=== PATIENT | male | born 1945 | race Caucasian/White ===

== ENCOUNTER 2016-09-17 08:25 | Day surgery (SDC) | payer MEDICARE, BC ==
[~2016-09-17 08:25] MED LIST: ASPI325T PO; ATEN-104 PO; ATOR10 PO; B COTAB3 PO; LOTR5CAP2 PO; OMEGCAP2 OR
[2016-09-17 08:41] VITALS: BP 149/93; PULSE 20; RESP 20; TEMP 98; O2SAT 97
--- NOTE | 2016-09-17 16:11 | RADRPT ---
EXAM DATE/TIME: 09/17/2016 08:45 [facility] COMPARISON : No previous studies available for comparison. INDICATIONS : Solid left renal mass. OBJECTIVE: Temperature: 98.0 Heart Rate: 74 Blood Pressure: 149/93 Respiratory: 16 Oximetry: 97 PNEUMONIA VACCINE: NO HISTORY OF PRESENT ILLNESS: Patient has a known solid left renal mass which has been under surveillance for several years and fou nd to be slowly increasing in size. Most recent MRI abdomen study from August 26, 2016 from [facility] was compared to MRI abdomen from [facility] dated February 02, 2013. This study revea ls increase in size of the mass from a transverse diameter of less than 2 cm to approximately 2.5 cm on the current study. PAST MEDICAL HISTORY : 1. Hypertension. 2. Hypercholesterolemia. PAST SURGICAL HISTORY : 1. Coronary artery stent. colon resection SOCIAL HISTORY : Social alcohol use. MEDICATIONS: NTG Aspirin ATENOL 150 mg q.d. LIPITOR 10 mg q.h.s. LOTTREL 5 mg q.d. ASSESSMENT: Solid left renal mass, slowly increasing in size. The mass is situated in a good location superficial ly in the posterior aspect of the left kidney and is readily accessible for biopsy and cryoablation t reatment was recommended. PLAN: The patient will be scheduled for left renal cryoablation and biopsy. Nikolas Yeung MD Board Certified Radiologist. This report was verified electronically.
== END 2016-09-17 10:05 | disposition home or self-care (01) ==
LOC: HROP 08:25 → HRIP 08:25 → HROP 10:05
PROVIDERS: ATTEND Radiology Body Imaging
DX: N28.89 Other specified disorders of kidney and ureter (principal); I10 Essential (primary) hypertension; E78.00 Pure hypercholesterolemia, unspecified
CPT/HCPCS: 99212; G0463

== ENCOUNTER 2016-11-07 06:18 | Day surgery (SDC) | payer MEDICARE, BC ==
[2016-11-07] VITALS (11 sets, daily range): BP systolic 112–140; BP diastolic 66–86; PULSE 65–82; RESP 18–20; TEMP 97.4–98.2; O2SAT 92–96
[~2016-11-07] VITALS: Ht 182.9 cm; Wt 89.1 kg
[2016-11-07] MEDS ORDERED: B-COCAP6 PO (07:04)
[2016-11-07] MEDS ORDERED: ATEN100T PO (07:04)
[2016-11-07] MEDS ORDERED: ASPI325T PO (07:04)
[2016-11-07] MEDS ORDERED: ATOR10TA15 PO (07:04)
[2016-11-07] MEDS ORDERED: LOTR5CAP2 PO (07:04)
[2016-11-07] MEDS ORDERED: OMEG100010 (07:04)
[2016-11-07] MEDS ORDERED: LACTATED RINGER'S 1000 ML IV SCH (07:30)
[2016-11-07] MEDS ORDERED: ceFAZolin 2 GM PREMIX 50 ML IV SCH (07:30)
[2016-11-07] MEDS ORDERED: INSULIN HUMAN REGULAR 1,000 UNITS/10 ML VIAL SQ PRN (07:30)
[2016-11-07] MEDS ORDERED: SODIUM CHLORID 0.9% 500 ML IV SCH (07:30)
[2016-11-07] MEDS ORDERED: METOPROLOL TARTRATE 25 MG TAB PO PRN (07:30)
[2016-11-07] MEDS ORDERED: SODIUM CHLOR 0.9% 1000 ML INJ 1,000 ML IV SCH (07:30)
[2016-11-07 07:49] LABS: BICARBONATE 22.6 MEQ/L (21.0-32.0); POTASSIUM 3.9 MEQ/L (3.5-5.1)
[2016-11-07] MEDS ORDERED: LIDOCAINE 1%/EPINEPHrine 1:100,000 SOLN 20 ML VIAL ONE (08:54)
[2016-11-07] MEDS ORDERED: ONDANSETRON HCL 4 MG/2 ML VIAL IV PUSH ONE (09:46)
[2016-11-07] MEDS ORDERED: ePHEDrine/NS 25 MG/5 ML SYR IV ONE (09:46)
[2016-11-07] MEDS ORDERED: NEOSTIGMINE 3 MG/3 ML SYR IV ONE (09:46)
[2016-11-07] MEDS ORDERED: PROPOFOL 200 MG/20 ML AMP IV ONE (09:46)
[2016-11-07] MEDS ORDERED: HYDROmorphone HCL 2 MG TAB PO PRN (11:30)
--- NOTE | 2016-11-07 11:34 | PD.RAD ---
Post CT Procedure Prog Note Pre Procedure Diagnosis: (1) Left renal mass Post Procedure Diagnosis: (1) Left renal mass Procedure Date: Nov 07, 2016 Supervising Radiologist: Nikolas Yeung Proceduralist/Assist: RT Lalo(R)(CT) Anesthesia: General Plan of Activity Patient to Unit: PACU Patient Condition: Good See PACS Report for procedural detail/treatment Biopsy Side: Left Biopsy Procedure: Kidney Specimen: Core Biopsy Additional Detail: with cryoablation Nikolas Yeung MD Nov 07, 2016 11:34
[2016-11-07] MEDS ORDERED: PILL SPLITTER OTHER PRN (11:45)
[2016-11-07] MEDS ORDERED: MIDAZOLAM HCL 2 MG/2 ML VIAL ONE (11:50)
[2016-11-07] MEDS ORDERED: fentaNYL CITRATE 250 MCG/5 ML AMP ONE (11:50)
[2016-11-07 12:32] LABS: AUTOMATED NEUTROPHIL # 9.1 TH/MM3 (1.8-7.7); BASOPHIL # 0.1 TH/MM3 (0-0.2); BASOPHIL % 0.9 % (0.0-2.0); EOSINOPHIL % 0.2 % (0.0-4.0); HEMATOCRIT 39.1 % (39.0-51.0); HEMO FLAGS DIFF FINAL; LYMPH % 5.5 % (9.0-44.0); LYMPHOCYTE # 0.6 TH/MM3 (1.0-4.8); MEAN CELL VOLUME 90.7 FL (80.0-100.0); MEAN CORPUSCULAR HEMOGLOBIN 31.2 PG (27.0-34.0); MEAN CORPUSCULAR HGB CONC 34.4 % (32.0-36.0); MONO % 1.9 % (0.0-8.0); NEUT % 91.5 % (16.0-70.0); PLATELET COUNT 184 TH/MM3 (150-450); RED BLOOD COUNT 4.31 MIL/MM3 (4.50-5.90); RED CELL DISTRIBUTION WIDTH 12.7 % (11.6-17.2); WHITE BLOOD COUNT 9.9 TH/MM3 (4.0-11.0)
[2016-11-07 14:06] LABS: BASOPHIL # 0.1 TH/MM3 (0-0.2); BASOPHIL % 0.7 % (0.0-2.0); EOSINOPHIL % 0.1 % (0.0-4.0); HEMATOCRIT 39.7 % (39.0-51.0); HEMO FLAGS DIFF FINAL; LYMPH % 4.2 % (9.0-44.0); LYMPHOCYTE # 0.5 TH/MM3 (1.0-4.8); MEAN CELL VOLUME 89.8 FL (80.0-100.0); MEAN CORPUSCULAR HEMOGLOBIN 31.4 PG (27.0-34.0); MONO % 1.8 % (0.0-8.0); NEUT % 93.2 % (16.0-70.0); PLATELET COUNT 205 TH/MM3 (150-450); RED BLOOD COUNT 4.42 MIL/MM3 (4.50-5.90); RED CELL DISTRIBUTION WIDTH 12.8 % (11.6-17.2); WHITE BLOOD COUNT 11.8 TH/MM3 (4.0-11.0)
--- NOTE | 2016-11-07 14:40 | RADRPT ---
EXAM DATE/TIME: 11/07/2016 09:01 [facility] COMPARISON: No previous studies available for comparison. INDICATIONS : Left renal mass. BIOPSY SITE: Left Anesthesia and pain control was provided by the Anesthesia department. DEVICE(S): 1.) 16 gauge Temno core biopsy needle MEDICAL HISTORY : Cardiovascular disease. Carcinoma, colon. SURGICAL HISTORY : None. ENCOUNTER: Initial ACUITY: 1 day PAIN SCORE: 0/10 LOCATION: Left upper quadrant A total of one core specimen(s) were obtained and sent to the laboratory for pathologic evaluation. PROCEDURE: 1. CT guided renal biopsy. 2. Conscious sedation with continuous EKG and oximetry monitoring. 3. EKG and oximetry remained stable throughout the procedure. Prior to the procedure informed consent was obtained. Any appropriate prior imaging studies were rev iewed. Using automated exposure control and adjustment of the mA and/or kV according to patient size, radiat ion dose was kept as low as reasonably achievable to obtain optimal diagnostic quality images. The site was prepped in a sterile fashion. Full sterile technique was used, including cap, mask, tyrell rile gloves and gown and a large sterile sheet. Hand hygiene and 2% chlorhexidine and/or betadine/al cohol prep was utilized per protocol for cutaneous antisepsis. The skin and subcutaneous tissues wer e infiltrated with local anesthetic solution. With CT guidance the previously identified target was localized. Biopsy was performed using the presc ribed needle as above. Adequate hemostasis was obtained with compression at the puncture site. Follow-up CT scan reveals no hemorrhage. The patient tolerated the procedure well and there were no complications. The patient was returned to the Radiology Outpatient Unit in stable condition. CONCLUSION: Uncomplicated CT guided biopsy. Nikolas Yeung MD on November 07, 2016 at 14:38 Board Certified Radiologist. This report was verified electronically.
--- NOTE | 2016-11-07 15:04 | RADRPT ---
EXAM DATE/TIME: 11/07/2016 09:01 INDICATIONS : Left renal mass. Anesthesia and pain control was provided by the Anesthesia department. DEVICE(S): 1.) 17 gauge Cryoablation probe x4 MEDICAL HISTORY : Cardiovascular disease. Carcinoma, colon. SURGICAL HISTORY : None. ENCOUNTER: Initial ACUITY: 1 day PAIN SCORE: 0/10 LOCATION: Left upper quadrant PROCEDURE : 1. CT guided cryoablation. Under sterile conditions and using aseptic technique with CT guidance the mass was localized and sati sfactory approach was taken to access the lesion. Using automated exposure control and adjustment of the mA and/or kV according to patient size, radiation dose was kept as low as reasonably achievable to obtain optimal diagnostic quality images. [employer] Cryoprobes were employed using percutaneous technique employing the prescribed probes. A freeze-thaw, freeze-thaw technique was employed and serial imaging demonstrated an ice ball encomp assing the entire lesion. Post procedure images demonstrate expected postoperative changes without e vidence of hematoma. CONCLUSION: Uncomplicated cryoablation as above. Nikolas Yeung MD on November 07, 2016 at 15:00 Board Certified Radiologist. This report was verified electronically.
--- NOTE | 2016-11-07 19:51 | EKG ---
Date Performed: 11/07/2016 Time Performed: 07:17:34 PTAGE: 71 years EKG: Sinus rhythm RIGHT BUNDLE BRANCH BLOCK When compared to previous tracing, right bundle branch block is New. ABNOR MAL ECG PREVIOUS TRACING : 10/18/2011 02.05 DOCTOR: Roby Smith Interpretating Date/Time 11/07/2016 19:50:49
== END 2016-11-07 17:31 | disposition home or self-care (01) ==
LOC: HRAD 06:18 → HRIP 06:21 → EDSTATUS 08:00 → HRAD 17:31
PROVIDERS: ATTEND Urology
DX: C64.9 Malignant neoplasm of unspecified kidney, except renal pelvis (principal); I25.10 Atherosclerotic heart disease of native coronary artery without angina pectoris; Z85.038 Personal history of other malignant neoplasm of large intestine; Z95.5 Presence of coronary angioplasty implant and graft
CPT/HCPCS: 50200; 50593; 77012; 77013; 80048; 82948; 85025; 88305; 93005; C2618; J0690; J2250; J3010; J7120; J2405; J2710

== ENCOUNTER 2016-11-14 13:02 | Day surgery (SDC) | payer MEDICARE, BC ==
[~2016-11-14 13:02] MED LIST changes: -ATEN-104 PO; +ATEN100T PO; -ATOR10 PO; +ATOR10TA15 PO; -B COTAB3 PO; +B-COCAP6 PO; +OMEG100010; -OMEGCAP2 OR
[2016-11-14 13:32] VITALS: BP 128/85; PULSE 66; RESP 20; TEMP 98.8; O2SAT 98
--- NOTE | 2016-11-15 09:15 | RADRPT ---
EXAM DATE/TIME: 11/14/2016 13:34 [facility] COMPARISON : INDICATIONS : Follow up post cryo/ ablation left renal mass OBJECTIVE: Temperature: 98.2 Heart Rate: 66 Blood Pressure: 128/85 Respiratory: 16 Oximetry: 98 HISTORY OF PRESENT ILLNESS: The patient is one week status post cryoablation of a left renal mass. The patient reports no problem s. He denies any fever or chills. Denies any discomfort. He states he has no questions or concerns. D oes not need to see the physician. PAST MEDICAL HISTORY : Left rnal mass SOCIAL HISTORY : ALLERGIES: 1. Nitroglycerin 1. Lotrel q.d. 2. Aspirin 325 mg q.d. 3. Atorvastatin q.h.s. 4. Freedom 3 PHYSICAL EXAMINATION: General: Patient is in no acute distress. Resting comfortably. Flank: The access site has healed nicely. No signs of infection. IMAGING STUDIES: Biopsy images and cryoablation images November 07, 2016 ASSESSMENT: The biopsy results taken at the time of cryoablation are consistent with clear cell renal cell carcin adan. PLAN: Patient is doing well status post cryoablation. The patient will need a followup CT scan in [facility] 3 months. It is my understanding this will be ordered by Dr. Awad. TIME SPENT: 15 mins Juan Donato Jr., MD on November 15, 2016 at 8:13 Board Certified Radiologist. This report was verified electronically.
== END 2016-11-14 14:00 | disposition home or self-care (01) ==
LOC: HRAD 13:02 → HRIP 13:05 → HRAD 14:00
PROVIDERS: ATTEND Radiology Body Imaging
DX: C64.9 Malignant neoplasm of unspecified kidney, except renal pelvis (principal)
CPT/HCPCS: 99211; G0463